=== PATIENT | male | born 1985 | race Caucasian/White ===

== ENCOUNTER → 2023-02-22 09:07 | Outpatient (BNVA) | payer BC, SELFPAY | PROVIDERS: PCP Nurse Practitioner Family; Visit Provider Nurse Practitioner Family | DX: R03.0 Elevated blood-pressure reading, without diagnosis of hypertension (principal); F90.9 Attention-deficit hyperactivity disorder, unspecified type; K46.9 Unspecified abdominal hernia without obstruction or gangrene | CPT/HCPCS: 80053; 80061 ==

== ENCOUNTER → 2023-06-20 09:13 | Outpatient (BNVA) | payer BC, SELFPAY | PROVIDERS: PCP Nurse Practitioner Family; Visit Provider Nurse Practitioner Family | DX: R00.2 Palpitations (principal); E78.5 Hyperlipidemia, unspecified; I10 Essential (primary) hypertension | CPT/HCPCS: 80061 ==

== ENCOUNTER → 2024-04-03 16:15 | Outpatient (BNVA) | payer BC, SELFPAY | PROVIDERS: PCP Nurse Practitioner Family; Visit Provider Family Medicine | DX: I10 Essential (primary) hypertension (principal); E29.1 Testicular hypofunction; F90.0 Attention-deficit hyperactivity disorder, predominantly inattentive type | CPT/HCPCS: 80053; 84403; 85025 ==

== ENCOUNTER 2025-05-13 07:34 | Day surgery (SDC) | payer BC, SELFPAY ==
[2025-05-13 07:47] VITALS: BP 150/100; PULSE 61; RESP 17; O2SAT 99; BMI 34.0
--- NOTE | 2025-05-13 08:45 | W.PM.OPSUD ---
Surgery/Procedure H&P Update DATE OF PROCEDURE: May 13, 2025 DATE H&P PERFORMED: 04/14/25 H&P UPDATE INFORMATION: I have reviewed H&P completed within last 30 days, I have examined patient prior to procedure and No changes to prior documentation PLANNED PROCEDURE: Operation Date: 05/13/25 08:45 Proposed Procedures p Colonoscopy 76564 G0105 Z12.11(Not Applicable) - Blayne Lyons MD
--- NOTE | 2025-05-13 08:46 | P.ANESASSM_ITS ---
Pre-Anesthetic Assessment Height/Weight: Height 1.88 m Weight 120.202 kg Pulse Resp BP Pulse Ox O2 Del Method 61 17 150/100 99 Room Air 05/13/25 07:47 05/13/25 07:47 05/13/25 07:47 05/13/25 07:47 05/13/25 07:47 Preop Diagnosis: Hx polyps Operation Date: 05/13/25 08:45 Proposed Procedures p Colonoscopy 14044 G0105 Z12.11(Not Applicable) - Blayne Lyons MD Was Beta Kandi taken within 24 hours: Yes Was Clonidine taken within 24 hours: N/A Last intake: Intake Last Liquid Date 05/12/25 Last Liquid Time 20:00 Last Solid Date 05/11/25 Last Solid Time 22:00 Social No alcohol and No tobacco Exam alert, oriented x 3, clear to auscultation bilaterally and regular rate & rhythm Airway Submandibular: within normal limits Cervical ROM: within normal limits Mallampati: Class II Dentition: full History/ROS No significant history except as noted and No significant complaints Pulmonary None reported CV/HEM Hypertension None reported Hepatic None reported GI None reported Metabolic None reported Musc/skel None reported Neuropsych None reported Anesthetic Plan ASA status: 2 Anesthesia: Anesthesia Evaluation and MAC Risk of > 500 ml blood loss (7ml/kg in children): No Medications/Allergies Home Medications ?Medication ?Instructions ?Recorded ?Confirmed ?Last Taken ?Type BD 23g x 1.5 3ml syringe #20 ea 06/17/24 04/14/25 Unk nown Rx metoprolol tartrate 50 mg tablet 50 mg PO BID #180 tab s 03/17/25 05/09/25 05/13/25 06:00 Rx Allergies Allergy/AdvReac Type Severity Reaction Status Date / Time calmine lotion Allergy Mild rash Uncoded 05/13/25 07:45 Current Medications Generic Name Dose Route Start Last Admin Trade Name Freq PRN Reason Stop Dose Admin Sodium Chloride 1,000 mls @ 15 mls/hr 05/13/25 07:38 05/13/25 07:54 Sodium Chloride 0.9% IV 05/14/25 07:37 15 mls/hr .Q24H PRN Administration COLONOSCOPY FLUIDS PFSH Anesthesia Medical History (Updated 04/14/25 @ 14:05 by Blayne Lyons MD) Essential hypertension Hernia ADHD Family History Grandmother Diabetes Hypertension Denies family history of CAD (coronary artery disease) Clotting disorder Dementia Hyperlipidemia Psychiatric illness Chronic kidney disease (CKD) Suicide Anesthesia complication Bleeding disorder Family history of premature coronary artery disease Lung disease Cancer Stroke Social History Smoking and tobacco/nicotine status: current every day tobacco/nicotine user (vaping) Second hand smoke exposure: No Substance/Drug Use: never Adopted: No Caregiver/support person: No Lives independently: Yes Household members: spouse Marital status: Number of children: 2 service: No Current occupational status: employed Current occupation: sales Current occupational exposures/hazards: No Sexually active: Yes Do you think of yourself as: Straight/Heterosexual Current gender identity: Male Data Anesthesia Cardiac Studies: Holter Monitor 07/12/23
--- NOTE | 2025-05-13 09:03 | PC.NURSE ---
CECUM TIME 09
[2025-05-13 09:16] VITALS: BP 105/73; PULSE 65; RESP 20; TEMP 36.1; O2SAT 96
[2025-05-13 09:28] VITALS: BP 103/72; PULSE 60; RESP 18; O2SAT 99
--- NOTE | 2025-05-13 09:36 | ANE.PACU2 ---
Inpatient post-anesthesia follow up: Airway intact: Yes Vital signs: Temperature 97 F Pulse Rate 60 Respiratory Rate 18 Blood Pressure 103/72 Pulse Oximetry 99 Oxygen Delivery Me thod Room Air Oxygen Flow Rate Fraction of Inspir ed Oxygen Hydration adequate: Yes Nausea and vomiting: No Pain level: 1 Mental status: Baseline
== END 2025-05-13 09:55 | disposition home or self-care (01) ==
PROVIDERS: PCP Family Medicine; Visit Provider Student in an Organized Health Care Education/Training Program
PROC: 0DJD8ZZ Inspection of Lower Intestinal Tract, Via Natural or Artificial Opening Endoscopic (ICD-10-PCS; CPT 45378; principal; 2025-05-13 08:45)
DX: Z12.11 Encounter for screening for malignant neoplasm of colon (principal); D12.3 Benign neoplasm of transverse colon; K63.89 Other specified diseases of intestine; I10 Essential (primary) hypertension; F17.290 Nicotine dependence, other tobacco product, uncomplicated; Z79.899 Other long term (current) drug therapy; Z86.0100 Personal history of colon polyps, unspecified
CPT/HCPCS: 45380; 88305; J2704; J7030